=== PATIENT | male | born 1985 | race Two or more races ===

== ENCOUNTER 2024-11-06 22:16 | Emergency (ER) | payer SELFPAY ==
--- NOTE | 2024-11-06 22:20 | PD.EDADULT ---
ED General RME/HPI General Chief complaint: Medical Clearance Stated complaint: MEDICAL CLEARANCE Time Seen by Provider: 11/06/24 22:18 Arrival date/time: 11/06/24 22:16 CC: Medical clearance HPI patient admits to methamphetamines is a heart rate of 140, patient has no specific complaints. Patient is awake alert and cooperative. Related Data Allergies Allergy/AdvReac Type Severity Reaction Status Date / Time No Known Allergies Allergy Verified 11/06/24 22:24 Review of Systems Review of Systems Narrative Review of Systems: GEN: No fever, no chills, no weight loss EYES: No discharge, no visual changes, no pain HEENT: No ear pain, no congestion, no sore throat PULM: No shortness of breath, no cough, no congestion CV: No chest pain, no dyspnea on exertion, no palpitations GI: No nausea, no vomiting, no diarrhea, no pain, no constipation : No frequency, no urgency, no dysuria MUSC/SKEL: No joint pain, no back pain SKIN: No rash PSYCH: No hallucinations, no depression HEME/LYMPH: No easy bleeding or bruising tendencies NEURO: No weakness, no headache ED Exam Narrative Physical exam: [General: Appears not in any acute distress Head normocephalic HEENT: Within acceptable limits Neck is supple nontender Chest equal chest rise nontender to palpation Respiratory: Clear to auscultation no wheezes crackles or rubs CV: Rate rhythm is regular, tachycardic, no murmurs rubs or clicks Abdomen is soft nontender no masses positive bowel sounds all 4 quadrants Back: No CVA tenderness no spinous process tenderness from cervical spine thoracic and lumbar spine Skin: Intact no petechiae rash induration ulceration or crepitus Extremities: Moving all extremity against resistance cap refill less than 2 seconds neurosensory intact Neuro: Awake alert oriented x3 Glascow coma 15 no focal deficits] Course Quality Measures none Orders Category Date Time Status Diazepam Inj [Valium Inj] Med 11/06/24 22:19 Discontinued 10 mg IM X1 ONE Vital Signs Vital signs: Vital Signs Temperature 98.4 F 11/06/24 22:22 Pulse Rate 135 H 11/06/24 22:22 Respiratory Rate 19 11/06/24 22:22 Blood Pressure 132/80 H 11/06/24 22:22 Pulse Oximetry (%) 96 11/06/24 22:22 Oxygen Delivery Method Room Air 11/06/24 22:22 [facility] Patient data External records reviewed:: [facility] previous records Clinical information provided by:: patient and law enforcement Social determinants that could affect healthcare access:: none Patient has the following chronic illnesses:: Methamphetamine abuse How is presenting disease/condition affected by chronic disease/condition?: exacerbated by Evaluation data The following diagnostics were reviewed and interpreted by me:: other (specify) Lab and/or radiology exams considered but not ordered:: None Interpretation Summary: None Medications Medications considered but not ordered:: None Medication administrations:: Medication Administration History Discontinued Medications Diazepam (Diazepam Inj 5 Mg/Ml Vial 2 Ml) 10 mg IM X1 ONE Stop: 11/06/24 22:20 Last Admin: 11/06/24 22:30 Dose: 10 mg Documented By: CVL None Consultations Consultation(s) initiated? (list below): No Diagnosis Differential Diagnosis ED Complaint MDM: Tachycardia methamphetamine abuse medical clearance Most likely diagnosis given after review of the tests above:: Medical clearance tachycardia Admission Indicated Admission indicated?: not indicated Explain why admission is indicated or not indicated:: Stable for halfway Admission Request Was there a request for admission?: No Disposition Plan Disposition Plan: Discharge Discharge Attestation Discharge Attestation: The patient and all family members were given an opportunity to ask questions and understood the discharge instructions. Discharge instructions specifically effects, indications for sooner follow up or return to the emergency department, and the expected course of current diagnosis. Patient condition: Stable Medical Decision Making Differential Diagnosis Differential Diagnosis: Tachycardia methamphetamine abuse medical clearance Discharge Plan Plan Patient Disposition: Longterm/Court/Law Patient condition on transfer: Stable Prescriptions/Referrals Referrals: No Primary/Family,Physician [Primary Care Provider] - In 1 week Problem List Clinical Impression: Medical clearance for incarceration Patient/Caregiver Discharge Instructions Additional Instructions: Return to the emergency department for worsening symptoms or any other concerns Print Language: Syrian
[2024-11-06 22:22] VITALS: BP 132/80; PULSE 135; RESP 19; TEMP 36.9; O2SAT 96; BMI 27.3
[2024-11-06] MEDS: DIAZEPAM INJ 5 MG/ML VIAL 2 ML 10 MG IM (22:30)
--- NOTE | 2024-11-06 23:02 | PD.EDADDENDU ---
Emergency Room Addendum <Smita Erazo - Last Filed: 11/06/24 23:03> Addendum Narrative: 2300: Care assumed from yKree Henning NP. Past medical, surgical, social and family history reviewed. Vitals and home medications reviewed. Results and treatment plan discussed. I will assume the care of the patient at this time and will follow the patient, pending re-evaluation. Please refer to the emergency department record for history and examination from initial visit.? <Shelly Mahajan MD - Last Filed: 11/07/24 01:32> Addendum Narrative: 2300: Care assumed from Kyree Henning NP. Past medical, surgical, social and family history reviewed. Vitals and home medications reviewed. Results and treatment plan discussed. I will assume the care of the patient at this time and will follow the patient, pending re-evaluation. Please refer to the emergency department record for history and examination from initial visit.? HR improved. Pt is medically cleared for incarceration.
[2024-11-06 23:06] VITALS: BP 147/96; PULSE 130; TEMP 36.9; O2SAT 95
[2024-11-07 01:24] VITALS: BP 126/87; PULSE 125; RESP 18; TEMP 36.7; O2SAT 98
== END 2024-11-07 01:52 ==
PROVIDERS: Emergency Provider Emergency Medicine
DX: Z02.89 Encounter for other administrative examinations (principal); F15.10 Other stimulant abuse, uncomplicated; Z65.3 Problems related to other legal circumstances
CPT/HCPCS: 96372; 99283; J3360